=== PATIENT | female | born 1955 | race Caucasian/White ===

== ENCOUNTER 2021-02-09 14:07 | Inpatient (IN) | payer BC, SELFPAY ==
--- NOTE | ~2021-02-09 | XR_ITS ---
EXAMINATION: XR RIBS, LEFT CLINICAL INFORMATION: Pain. COMPARISON: None TECHNIQUE: 3 views of the left ribs were obtained. Chest one view FINDINGS: CHEST: Lungs are well-expanded and clear of acute process. There is minimal bilateral apical pleural thickening. No consolidation, pneumothorax, or pleural effusion. The cardiomediastinal silhouette and pulmonary vasculature are normal. Left RIBS: Osseous structures are unremarkable. Ribs are intact. There is no visible fracture or bony abnormality. The soft tissues are normal. XR/XR ribs LT min 3V w CXR1V IMPRESSION: Unremarkable chest exam. Unremarkable left rib exam. No visible fracture seen.
--- NOTE | ~2021-02-09 | CT_ITS ---
EXAMINATION: CT HEAD WITHOUT CONTRAST CLINICAL INFORMATION: Head injury. Rule out bleed. COMPARISON: None TECHNIQUE: Contiguous axial imaging was performed from the skull base to vertex without intravenous administration of contrast. This CT examination was performed using dose optimization techniques as appropriate, variously including the following: *Automated exposure control *Adjustment of mA and/or kV according to patient size (this includes techniques or standardized protocols for targeted exams where dose is matched to indication/reason for exam; i.e. extremities or head) *Use of iterative reconstruction technique DLP: 621 mGy-cm FINDINGS: There is no evidence of acute intracranial hemorrhage or territorial infarction. No abnormal mass effect or midline shift is seen. Ng to white matter differentiation is well preserved. No extra-axial fluid collections are identified. The ventricles are normal in size. There is no abnormal attenuation within the brain parenchyma. The osseous structures and soft tissues are normal. The mastoid air cells and visualized portions of the paranasal sinuses are well aerated. There is a 3 mm radiopaque density overlying the superficial soft tissues lateral to the left orbit questionable for foreign body versus calcification. CT/CT head/brain wo con IMPRESSION: No acute findings.
[2021-02-09 14:18] VITALS: BP 144/80; BP 151/91; PULSE 102; PULSE 93; RESP 15; O2SAT 98; O2SAT 99; BMI 27.8
--- NOTE | 2021-02-09 15:10 | ED_ITS ---
HPI - Fall General Chief Complaint: Fall Stated Complaint: FALL Time Seen by Provider: 02/09/21 14:19 History of Present Illness HPI Narrative: Patient complains of chest pain and a laceration to her face and left rib pain after a fall, she tripped and fell when getting out of her car, sh sanjana remembers everything she was never dizzy or feeling faint there was no syncope, no loss of consciousness, and she fell hitting the left side of her face and her left ribs, no neck pain no numbness or weakness The chest pain began after the fall when she developed a pressure-like feeling in her chest which was present on her arrival in the ER, there is no pain with a deep breath or with movement, no shortness of breath no diaphoresis no palpitations, the pain does radiate towards her back Related Data Home Medications Medication Instructions Recorded Confirmed gabapentin 600 mg PO BEDTIME 02/09/21 02/09/21 nortriptyline 25 mg PO BEDTIME 02/09/21 02/09/21 omeprazole [Prilosec] 40 mg PO DAILY 02/09/21 02/09/21 Allergies Allergy/AdvReac Type Severity Reaction Status Date / Time Penicillins [PCN] Allergy Mild Itching Verified 02/09/21 15:20 azithromycin Allergy Itching Verified 02/09/21 15:20 mold Allergy Itching Verified 02/09/21 15:20 codeine AdvReac Constipatio Verified 02/09/21 15:20 n Review of Systems Review of Systems: Positive for chest pain, left rib pain and a laceration on the face Negatives are no fever no chills no dizziness no weakness no fainting no feeling faint no confusion no headache no neck pain no numbness weakness or tingling, no shortness of breath no palpitations, no exertional symptoms no diaphoresis, no abdominal pain no nausea no vomiting no leg swelling no rash no numbness or weakness PMFSH Past Medical History [facility] Narrative: Patient is being evaluated by her primary doctor for possible diabetes, no history of heart disease no history of high cholesterol no history of high blood pressure Source: nursing notes reviewed Medical History (Updated 02/09/21 @ 21:35 by FARHANA Egan) Chronic headache Chronically dry eyes GERD (gastroesophageal reflux disease) Osteopenia Social History Social History Alcohol intake: current Alcohol intake frequency: holidays/special occasions only Smoking Status: Never smoker Use of substances other than those prescribed or required for medical reasons: No Advance Directives: No Advance Directives Information Provided: Yes Physical Exam Vital Signs: Vital Signs: Last Vital Signs Pulse 121 H 02/09/21 20:00 Resp 18 02/09/21 20:00 BP 121/80 02/09/21 20:00 Pulse Ox 100 02/09/21 20:00 Body Mass Index 27.8 General appearance is no acute distress, comfortable relaxed and cooperative There is a 2 cm laceration over the left eyebrow, there is no scalp hematoma there is no gordon sign no raccoon eyes no scalp defect, pupils are equal round reactive to light, extraocular motions are intact The neck is supple and nontender There is some tenderness to the left lower rib, but no tenderness to the chest wall, no pain with deep breath no ecchymosis to the chest wall Breath sounds are clear to auscultation bilateral with full symmetrical equal sounds The heart rate and rhythm regular no murmurs The abdomen is soft nontender Extremities no edema The extremities are full range of motion x4 without swelling or deformities Neuro cranial nerves 2-12 intact as tested, verbal interaction and conversation and understanding are normal, motor is 5/5 x4, sensation intact and symmetrical Course Course Course Narrative: EKG was normal sinus rhythm, ventricular rate on 1st EKG was 75 with no acute ischemic change, no acute ST or T-wave changes, [place] interval normal QRS duration normal QTC normal Second EKG was sinus tachycardia at a rate of [address] or T-wave changes [place] was normal QRS was normal QT normal and no significant interval change in the 2 EKGs Third EKG done 3 hours later showed sinus tachycardia with a rate of 111 [place] normal QRS normal QTC normal no acute ST or T-wave changes no acute ischemic changes no significant interval ischemic change First troponin was elevated at 156, repeat was 955 Fleecer was contacted and advised admit patient to intermediate care for monitoring and started a heparin drip and flight test engineer will evaluate patient for ischemia in the coming day Head CT was normal Left rib and chest x-ray did not reveal any acute abnormality or evidence of trauma No other significant lab abnormality The patient developed some anxiety over her visit and was given some Atarax but otherwise her chest pain resolved after an inch of nitropaste and she was comfortable and relaxed chatting with her daughter in her room Procedure note the 2 cm laceration over left eyebrow was cleansed and irrigated with normal saline, anesthesia was 6 cc of 1% lidocaine, wound was examined for foreign body, no foreign body Closure was 7 x 5.0 sutures, bleeding was controlled Hospitalist was contacted and patient was admitted to intermediate care [facility] Lab Data Attestation: I reviewed the patient's lab results. Result diagrams: 02/09/21 15:37 02/09/21 15:37 Labs: Lab Results 02/09/21 02/09/21 02/09/21 Range/Units 15:37 15:37 15:37 WBC 7.2 (4.8-10.8) X10*3/uL RBC 6.52 H (4.20-5.50) X10*6/uL Hgb 11.1 L (12.0-16.0) g/dl Hct 37.4 (37-47) % MCV 57.4 L (80-98) fL MCH 17.0 L (27.0-33.0) pg MCHC 29.7 L (31.0-35.0) g/dl RDW 17.7 H (11.0-16.0) % Plt Count 198 (160-400) X10*3/uL MPV Not Reportable Immature Gran % (Auto) 0.4 (0.0-0.4) % Neut % (Auto) 78.0 H (45-73) % Lymph % (Auto) 15.6 L (20-40) % [place] % (Auto) 4.6 (2-11) % Eos % (Auto) 1.0 (0-4) % Baso % (Auto) 0.4 (0-2) % Lymph # (Auto) 1.1 L (1.2-4.9) X10*3/uL [place] # (Auto) 0.3 (0.1-1.2) X10*3/uL Eos # (Auto) 0.1 (0.0-0.4) X10*3/uL Baso # (Auto) 0.0 (0.0-0.2) X10*3/uL Abs Immat Gran (auto) 0.03 (0.00-0.03) X10*3/uL Absolute Neuts (auto) 5.6 (2.0-8.3) X10*3/uL Absolute Nucleated RBC 0.000 (0.0-0.012) X10*3/uL Nucleated RBC % (auto) 0.0 (0.0-0.2) /100WBC Smear Tech's Comments VERIFIED Sodium 135 (135-145) mmol/L Potassium 3.5 (3.3-5.1) mmol/L Chloride 96 (96-108) mmol/L Carbon Dioxide 27 (22-29) mmol/L Anion Gap 16 (12-20) BUN 12 (9-16) mg/dL Creatinine 0.73 (0.5-1.4) mg/dL Estim Creat Clear Calc 68.2 Estimated GFR > 60 Random Glucose 242 H (60-115) mg/dL Calcium 9.3 (8.4-10.2) mg/dL Troponin I High Sens 156.3 H (<3.5-17.0) ng/L COVID-19 (CYNDIE) (Negative) COVID-19 Clin Com 02/09/21 02/09/21 Range/Units 18:36 20:25 WBC (4.8-10.8) X10*3/uL RBC (4.20-5.50) X10*6/uL Hgb (12.0-16.0) g/dl Hct (37-47) % MCV (80-98) fL MCH (27.0-33.0) pg MCHC (31.0-35.0) g/dl RDW (11.0-16.0) % Plt Count (160-400) X10*3/uL MPV Immature Gran % (Auto) (0.0-0.4) % Neut % (Auto) (45-73) % Lymph % (Auto) (20-40) % [place] % (Auto) (2-11) % Eos % (Auto) (0-4) % Baso % (Auto) (0-2) % Lymph # (Auto) (1.2-4.9) X10*3/uL [place] # (Auto) (0.1-1.2) X10*3/uL Eos # (Auto) (0.0-0.4) X10*3/uL Baso # (Auto) (0.0-0.2) X10*3/uL Abs Immat Gran (auto) (0.00-0.03) X10*3/uL Absolute Neuts (auto) (2.0-8.3) X10*3/uL Absolute Nucleated RBC (0.0-0.012) X10*3/uL Nucleated RBC % (auto) (0.0-0.2) /100WBC Smear Tech's Comments Sodium (135-145) mmol/L Potassium (3.3-5.1) mmol/L Chloride (96-108) mmol/L Carbon Dioxide (22-29) mmol/L Anion Gap (12-20) BUN (9-16) mg/dL Creatinine (0.5-1.4) mg/dL Estim Creat Clear Calc Estimated GFR Random Glucose (60-115) mg/dL Calcium (8.4-10.2) mg/dL Troponin I High Sens 955.8 H D (<3.5-17.0) ng/L COVID-19 (CYNDIE) Negative (Negative) COVID-19 Clin Com See Note Discharge Plan Discharge Clinical Impression: Acute non-ST elevation myocardial infarction (NSTEMI) Patient Disposition: Admitted As Inpatient
--- NOTE | 2021-02-09 15:23 | ECG_ITS ---
Test Reason : REPEAT Blood Pressure : / mmHG Vent. Rate : 098 BPM Atrial Rate : 098 BPM P-R Int : 162 ms QRS Dur : 080 ms QT Int : 354 ms P-R-T Axes : 023 018 026 degrees QTc Int : 451 ms Normal sinus rhythm Normal ECG No previous ECGs available Referred By: Tej Salomon Electronically Signed By:Doug Gold
[2021-02-09] MEDS: Lidocaine HCl 1 % MPF 5 ML VIAL SUBCUT ×2 (15:32)
[2021-02-09 15:56] LABS: Basophils Percent Auto 0.4 % (0-2); Hemoglobin 11.1 g/dl (12.0-16.0); MANUAL DIFF FLAG SCAN; SCAN SMEAR FLAG 1
[2021-02-09 15:58] LABS: Eosinophils Absolute Auto 0.1 X10*3/uL (0.0-0.4); Hematocrit 37.4 % (37-47); Imm Gran Abs Auto 0.03 X10*3/uL (0.00-0.03); Imm Gran Pct Auto 0.4 % (0.0-0.4); Lymphocytes Absolute Auto 1.1 X10*3/uL (1.2-4.9); Lymphocytes Percent Auto 15.6 % (20-40); Mean Corpuscular HGB Conc 29.7 g/dl (31.0-35.0); Monocytes Absolute Auto 0.3 X10*3/uL (0.1-1.2); Monocytes Percent Auto 4.6 % (2-11); Neutrophils Absolute Auto 5.6 X10*3/uL (2.0-8.3); Platelet Count 198 X10*3/uL (160-400); Red Blood Count 6.52 X10*6/uL (4.20-5.50); Red Cell Distribution Width 17.7 % (11.0-16.0); White Blood Count 7.2 X10*3/uL (4.8-10.8)
[2021-02-09 16:00] VITALS: PULSE 108; RESP 18; O2SAT 100
[2021-02-09 16:01] LABS: Anion Gap 16 (12-20); Blood Urea Nitrogen 12 mg/dL (9-16); Calcium 9.3 mg/dL (8.4-10.2); Carbon Dioxide 27 mmol/L (22-29); Chloride 96 mmol/L (96-108); Creatinine Clr Calc Pharmacy 68.2; Estimated Glomerular Filt Rate > 60; Glucose Random 242 mg/dL (60-115); Potassium 3.5 mmol/L (3.3-5.1); Sodium 135 mmol/L (135-145)
[2021-02-09 16:08] LABS: Mean Corpuscular Volume 57.4 fL (80-98)
[2021-02-09 16:09] LABS: PLT ABN DIST 1
[2021-02-09 16:11] LABS: SLIDE REVIEW VERIFIED
[2021-02-09 16:12] LABS: Troponin-I High Sensitivity 156.3 ng/L (<3.5-17.0)
--- NOTE | 2021-02-09 16:26 | ECG_ITS ---
Test Reason : FALL Blood Pressure : / mmHG Vent. Rate : 094 BPM Atrial Rate : 094 BPM P-R Int : 166 ms QRS Dur : 080 ms QT Int : 364 ms P-R-T Axes : 027 011 019 degrees QTc Int : 455 ms Normal sinus rhythm Normal ECG No previous ECGs available Referred By: Tej Salomon Electronically Signed By:Doug Gold
[2021-02-09] MEDS: Aspirin 325 MG TABLET PO (16:56)
[2021-02-09 16:57] VITALS: BP 147/92; PULSE 110
[2021-02-09] MEDS: Nitroglycerin 2 % Oint 1 GM Packet 1 INCH TRANSDERMA (16:57)
[2021-02-09 19:29] LABS: Troponin-I High Sensitivity 955.8 ng/L (<3.5-17.0)
[2021-02-09 20:00] VITALS: BP 121/80; PULSE 121; RESP 18; O2SAT 100
[2021-02-09] MEDS: Heparin Sodium,Porcine 5,000 UNIT/ML VIAL 4000 UNIT IVPUSH (20:31)
[2021-02-09] MEDS: Heparin Sodium,Porcine/1/2NS 25,000 UNIT/250 ML IV.SOLN 6.7 UNIT IVCONT (20:33)
[2021-02-09] MEDS: hydrOXYzine HCL 25 MG TABLET PO (20:37)
[2021-02-09 20:41] LABS: Prothrombin Time 12.2 SEC (10.8-13.0)
[2021-02-09 20:48] LABS: COVID-19 Test Negative (Negative)
--- NOTE | 2021-02-09 23:09 | P.HPHOSP_ITS ---
History of Present Illness Date of Service: 02/09/21 Chief Complaint: chest pain 65-year-old female with past medical history of anxiety, chronic headache, GERD, osteopenia, who presents to the hospital after a fall in experiencing chest pain. Patient reports that she was walking, tripped in a pothole and fell , hit her head, and had laceration of her left eyebrow. She immediately also developed left under the breast pain that eventually became pain across her chest, as well as pain under her right shoulder. The pain was dull achy, pain, not associated with shortness of breath, not associated with nausea or vomiting, she has no abdominal pain. She denies any palpitations. She reports that she is feeling palpitations now because she is nervous and anxious. She denies having any previous similar episodes. Her pain across her chest has not resolved but has pain under the right shoulder blade in the back. She otherwise denies any headache, change in vision, no diarrhea constipation, no urinary symptoms and no lower extremity edema. On arrival to the ED hemodynamically stable except for a heart rate of 93, blood pressure 151/91. Patient's heart rate also fluctuated between 90 to 120s sinus. Labs are significant for WBC count of 7.2, hemoglobin of 11.1, hematocrit 37.4, labs also significant for an initial troponin 156, then increase to 955.8, Patient's EKG shows normal sinus rhythm with no ST T wave changes Patient was started on heparin GGT and will be admitted for further management. Past medical history as below lung confirmed with patient Review of Systems Review of Systems: Yes all other systems are reviewed and are negative [facility] Medical History (Updated 02/10/21 @ 06:48 by Chantale Vang MD) Chronic headache Chronically dry eyes GERD (gastroesophageal reflux disease) Osteopenia Pertinent family history: Both parents healthy Surgical History (Updated 02/10/21 @ 06:47 by Chantale Vang MD) History of delivery Social History Alcohol intake: current Alcohol intake frequency: holidays/special occasions only Smoking Status: Never smoker Use of substances other than those prescribed or required for medical reasons: No Advance Directives: No Advance Directives Information Provided: Yes Meds Allergies Allergy/AdvReac Type Severity Reaction Status Date / Time Penicillins [PCN] Allergy Mild Itching Verified 02/09/21 15:20 azithromycin Allergy Itching Verified 02/09/21 15:20 mold Allergy Itching Verified 02/09/21 15:20 codeine AdvReac Constipatio Verified 02/09/21 15:20 n Active Medications: Current Medications Generic Name Dose Route Start Last Admin Trade Name Freq PRN Reason Stop Dose Admin Acetaminophen 650 mg 02/09/21 22:28 Acetaminophen 325 Mg Tablet PO Q6H PRN Pain, Mild (Pain Scale 1-3) Aspirin 81 mg 02/10/21 09:00 Aspirin Enteric Coated 81 Mg Tablet. PO DAILY [facility] Atorvastatin Calcium 40 mg 02/10/21 21:00 Atorvastatin Calcium 40 Mg Tablet PO BEDTIME [facility] Docusate Sodium 100 mg 02/09/21 22:28 Docusate Sodium 100 Mg Capsule PO DAILY PRN Constipation Gabapentin 600 mg 02/09/21 22:28 Gabapentin 600 Mg Tablet PO BEDTIME [facility] Heparin Sodium/Sodium Chloride 25,000 unit in 250 mls @ 0 mls/hr 02/09/21 20:30 02/09/21 20:33 IVCONT 10 units/kg/hr .Q0M [facility] 6.7 mls/hr Administration Protocol Per Protocol Metoprolol Tartrate 6.25 mg 02/10/21 09:00 Metoprolol Tartrate 12.5 Mg Halftab PO BID [facility] Protocol Nortriptyline HCl 25 mg 02/09/21 22:28 Nortriptyline Hcl 25 Mg Capsule PO BEDTIME [facility] Omeprazole 40 mg 02/10/21 06:30 Omeprazole 40 Mg Capsule. PO DAILY@0630 [facility] Ondansetron HCl 4 mg 02/09/21 22:28 Ondansetron Hcl 4 Mg/2 Ml Vial IVPUSH Q8H PRN Nausea and Vomiting Sodium Chloride 3 ml 02/10/21 00:00 0.9 % Sodium Chloride Flush 3 Ml Syringe IVFLUSH QSHIFT [facility] Home Medications Medication Instructions Recorded Confirmed Last Taken Type gabapentin 600 mg PO BEDTIME 02/09/21 02/09/21 1 Day Ago History ~02/08/21 nortriptyline 25 mg PO BEDTIME 02/09/21 02/09/21 1 Day Ago History ~02/08/21 omeprazole [Prilosec] 40 mg PO DAILY 02/09/21 02/09/21 1 Day Ago History ~02/08/21 Physical Exam Vital Signs and Narrative: Vital Signs: Last Vital Signs Pulse 121 H 02/09/21 20:00 Resp 18 02/09/21 20:00 BP 121/80 02/09/21 20:00 Pulse Ox 100 02/09/21 20:00 Body Mass Index 27.8 Const: General: cooperative and no acute distress Orientation/consciousness: patient oriented x3 Eyes: Other: Laceration on the left eyebrow, sutured General: appearance normal, both eyes and all related structures Resp: Effort & Inspection: normal respiratory effort and able to speak in complete sentences Cardio: Rate: regular rate Rhythm: regular rhythm GI: Palpation (GI): Soft to palpation Auscultation: normal bowel sounds Skin: General skin exam: no rashes or lesions noted Neuro: General: patient oriented x3 Cognition (Neuro): normal cognition Extrem: General: Yes normal to inspection and Yes no pedal edema Results Labs CBC and Chem 7: 02/09/21 15:37 02/09/21 15:37 Labs: Laboratory Results - last 24 hr 02/09/21 02/09/21 02/09/21 15:37 15:37 15:37 MCV 57.4 L MCH 17.0 L MCHC 29.7 L RDW 17.7 H Plt Count 198 MPV Not Reportable Immature Gran % (Auto) 0.4 Neut % (Auto) 78.0 H Lymph % (Auto) 15.6 L [place] % (Auto) 4.6 Eos % (Auto) 1.0 Baso % (Auto) 0.4 Lymph # (Auto) 1.1 L [place] # (Auto) 0.3 Eos # (Auto) 0.1 Baso # (Auto) 0.0 Abs Immat Gran (auto) 0.03 Absolute Neuts (auto) 5.6 Absolute Nucleated RBC 0.000 Nucleated RBC % (auto) 0.0 Smear Tech's Comments VERIFIED PT INR PTT (Heparin Protocol) Anion Gap 16 Estim Creat Clear Calc 68.2 Estimated GFR > 60 Random Glucose 242 H Calcium 9.3 Troponin I High Sens 156.3 H COVID-19 (CYNDIE) COVID-19 Clin Com 02/09/21 02/09/21 02/09/21 18:36 20:25 20:25 MCV MCH MCHC RDW Plt Count MPV Immature Gran % (Auto) Neut % (Auto) Lymph % (Auto) [place] % (Auto) Eos % (Auto) Baso % (Auto) Lymph # (Auto) [place] # (Auto) Eos # (Auto) Baso # (Auto) Abs Immat Gran (auto) Absolute Neuts (auto) Absolute Nucleated RBC Nucleated RBC % (auto) Smear Tech's Comments PT 12.2 INR 1.0 PTT (Heparin Protocol) 30.0 L Anion Gap Estim Creat Clear Calc Estimated GFR Random Glucose Calcium Troponin I High Sens 955.8 H D COVID-19 (CYNDIE) Negative COVID-19 Clin Com See Note ECG Interpretation: Normal sinus rhythm, no ST T-wave changes suggestive of ACS Imaging Radiologist's Impressions: Impressions Ribs X-Ray 02/09/21 15:23 IMPRESSION: Unremarkable chest exam. Unremarkable left rib exam. No visible fracture seen. Head CT 02/09/21 15:24 IMPRESSION: No acute findings. Assessment and Plan (1) Acute non-ST elevation myocardial infarction (NSTEMI): Status: Acute (2) Fall: Status: Acute (3) Eyebrow laceration: Status: Acute This is a 65-year-old female with no risk factors for coronary artery disease presents to the hospital with chest pain after experiencing a mechanical fall. Found to have NSTEMI. # NSTEMI - Possibly precipitated by the fall?, as patient had a significant fall with laceration to her face - Has no risk factors but reports that she was being worked up for possible diabetes - Trop 156 -> 955 - Has chest pain across the chest Plan: - ASA, heparin ggt, start her on low dose metoprolol BID, statin - Echocardiogram - Cardiology consult # Fall - Mechanical - No evidence of rib fracture on xray # Eyebrow laceration - s/p sutures # Headaches - chronic - continue nortriptyline DVT ppx: Heparin subq
[2021-02-09] MEDS: Nortriptyline HCl 25 MG CAPSULE PO (23:53)
[2021-02-09] MEDS: Gabapentin 600 MG TABLET PO (23:53)
--- NOTE | 2021-02-10 | ECG_ITS ---
Test Reason : REPEAT Blood Pressure : / mmHG Vent. Rate : 108 BPM Atrial Rate : 108 BPM P-R Int : 152 ms QRS Dur : 076 ms QT Int : 372 ms P-R-T Axes : 027 009 140 degrees QTc Int : 498 ms Sinus tachycardia T wave abnormality, consider lateral ischemia Abnormal ECG When compared with ECG of 09-FEB-2021 17:13, T wave inversion now evident in Anterolateral leads Referred By: Basilio Bui Electronically Signed By:Doug Gold
[2021-02-10] MEDS: 0.9 % Sodium Chloride Flush 3 ML SYRINGE IVFLUSH (00:03)
[2021-02-10 01:25] VITALS: BP 120/58; PULSE 99; RESP 18; O2SAT 100
--- NOTE | 2021-02-10 02:10 | PC.NURSE ---
Phlebotomy contacted for protocol draw for heparin drip.
[2021-02-10 02:30] LABS: Troponin-I High Sensitivity 1374.1 ng/L (<3.5-17.0)
[2021-02-10 07:11] LABS: Estimated Average Glucose 286 mg/dL; Hemoglobin A1c % 11.6 %
[2021-02-10] MEDS: Omeprazole 40 MG CAPSULE.DR PO (07:52)
[2021-02-10 08:21] LABS: Imm Gran Abs Auto 0.03 X10*3/uL (0.00-0.03); Imm Gran Pct Auto 0.4 % (0.0-0.4); MANUAL DIFF FLAG SCAN; SCAN SMEAR FLAG 1
[2021-02-10 08:23] LABS: Basophils Percent Auto 0.4 % (0-2); Eosinophils Absolute Auto 0.1 X10*3/uL (0.0-0.4); Eosinophils Percent Auto 0.7 % (0-4); Hematocrit 38.8 % (37-47); Hemoglobin 11.5 g/dl (12.0-16.0); Lymphocytes Absolute Auto 1.8 X10*3/uL (1.2-4.9); Lymphocytes Percent Auto 21.9 % (20-40); Mean Corpuscular HGB Conc 29.6 g/dl (31.0-35.0); Mean Corpuscular Hemoglobin 16.9 pg (27.0-33.0); Monocytes Absolute Auto 0.6 X10*3/uL (0.1-1.2); Monocytes Percent Auto 7.5 % (2-11); Neutrophils Absolute Auto 5.6 X10*3/uL (2.0-8.3); Neutrophils Percent Auto 69.1 % (45-73); Platelet Count 223 X10*3/uL (160-400); Red Blood Count 6.82 X10*6/uL (4.20-5.50); Red Cell Distribution Width 18.4 % (11.0-16.0); White Blood Count 8.1 X10*3/uL (4.8-10.8)
[2021-02-10 08:39] LABS: INTERNATIONAL NORM RATIO 1.1 (0.9-1.1); Prothrombin Time 12.9 SEC (10.8-13.0)
[2021-02-10 08:48] LABS: Anion Gap 16 (12-20); Blood Urea Nitrogen 9 mg/dL (9-16); Calcium 8.7 mg/dL (8.4-10.2); Carbon Dioxide 24 mmol/L (22-29); Chloride 100 mmol/L (96-108); Creatinine Clr Calc Pharmacy 74.3; Estimated Glomerular Filt Rate > 60; Glucose Random 249 mg/dL (60-115); Potassium 3.9 mmol/L (3.3-5.1); Sodium 136 mmol/L (135-145); Troponin-I High Sensitivity 1044.6 ng/L (<3.5-17.0)
[2021-02-10 08:51] LABS: Mean Corpuscular Volume 56.9 fL (80-98); PLT ABN DIST 1
--- NOTE | 2021-02-10 09:00 | CA_ITS ---
Transthoracic Echocardiogram Patient (Last, First, Middle): Mae Lee, Gender: Female Date of : 1955 Age: 65 Procedure Date: 02/10/2021 Procedure Type: Transthoracic Echocardiogram Location: ER Height: 154.94 cm Weight: 66.68 kg BSA: 1.66 m2 Heart Rate: bpm BP: 120 / 58 mmHg Jewelry Making Instructor: ASNA Amador MD: Chantale Vang MD Symptoms: NSTEMI Study Quality: Fair/contrast Conclusions: - The left ventricular systolic function is moderately decreased. The visually estimated ejection fraction is between 30-35%. - The apical anterior, apical inferior, mid anterior, mid inferior, apical lateral, apical septum, mid anterolateral, mid inferoseptal, mid anteroseptal, and mid inferolateral segments are akinetic. - Findings are likely due to Takotsubo cardiomyopathy. We shall correlate with cardiac cath tomorrow. Findings Procedure Information Contrast agent, definity, is being given per protocol without apparent complications. Left Ventricle Normal left ventricular cavity size. There is mildly increased left ventricular wall thickness. The left ventricular systolic function is moderately decreased. The visually estimated ejection fraction is between 30 35%. There is evidence of regional wall motion abnormalities. Diastolic function is indeterminate on the basis of available data. Wall Motion Rest Echo Findings The apical anterior, apical inferior, mid anterior, mid inferior, apical lateral, apical septum, mid anterolateral, mid inferoseptal, mid anteroseptal, and mid inferolateral segments are akinetic. Right Ventricle Normal right ventricular cavity size and systolic function. Atria Both atria are normal in size. Aortic Valve There is a normal trileaflet aortic valve. There is mild thickening of the aortic valve. There is no aortic valve stenosis. There is no aortic valve regurgitation. Mitral Valve Normal mitral valve structure and function. There is no mitral valve regurgitation. There is no mitral valve stenosis. Pulmonic Valve Normal pulmonic valve structure and function. Tricuspid Valve Normal tricuspid valve structure and function. There is no tricuspid valve regurgitation. Tricuspid regurgitation envelope is inadequate for calculation of right ventricular systolic pressure. Normal right atrial pressure. Great Vessels All visible segments of the aorta are normal in size. The visualized portions of the pulmonary artery and branches are normal. Venous The inferior vena cava is normal in size and collapses greater than 50% with inspiration. Pericardium/Pleural There is no evidence of pericardial effusion. Prior Study Comparison No prior study available for comparison. Measurements 2D Linear Measurements IVSd: 1.06 0.6-0.9/0.6-1.0 cm LVIDd: 3.61 3.9-5.3/4.2-5.9 cm LVIDd Index: 2.17 2.4-3.2/2.2-3.1 cm/m2 LVIDs: 2.66 2.0-3.6 cm LVPWd: 1.06 0.7-1.1 cm Ao Root: 3.10 2.1-3.5 cm LA Diam: 3.10 2.7-3.8/3.0-4.0 cm LAIDs Index: 1.87 1.5-2.3 cm/m2 LV Mass: 146.73 67-162/88-224 g LV Mass Index: 88.39 43-95/49-115 g/m2 LVOT Diam: 2.00 3.0+(-)1.3 cm Mitral Valve E'Medial: 8.81 Aortic Valve AoV Pk Saw: 1.03 AoV Mn Saw: 0.75 AoV VTI: 0.17 AoV Pk Grad: 4.00 Aov Mn Grad: 3.00 CHRISTINA Cont.VTI: 3.00 LVOT LVOT Pk Saw: 1.02 LVOT Mn Saw: 0.62 LVOT VTI: 0.17 LVOT Pk Grad: 4.00 LVOT Mn Grad: 2.00 LVOT Diam: 2.00 LVOT Area: 3.14 Diastolic Function E'Medial: 8.81 Tricuspid Valve RA Press: 3.00 Great Vessels Aorta Ao Root-2D: 3.10 2.0-3.7 cm Ao Asc: 2.70 2.1-3.4 cm Ao Arch: 3.20 Updated in Other Vendor System with Status of Final Doug Gold MD electronically signed on 02/10/2021 3:43:43 PM with status of Final
[2021-02-10 09:01] LABS: SLIDE REVIEW VERIFIED
[2021-02-10 09:10] LABS: Cholesterol 235 mg/dL; HDL Cholesterol 59 mg/dL; LDL Cholesterol Calculated 143 mg/dl; Triglycerides 169 mg/dL
--- NOTE | 2021-02-10 09:17 | MHC.CM.ED ---
Met with patient in regards to discharge planning. Patient lives in [facility]. Her daughter goes to [facility]. She came up to visit daughter, tripped on a pothole getting out of the car and fell. Currently has a left black eye and sutures over her left eyebrow. Patient was found to have positive NSTEMI. Patient lives alone, ambulates independently and had no services prior to coming to the hospital. VNA services are not anticipated to be needed because patient is not homebound. PCP verified as Dr Desire Olea on the [address] in [facility]. Patient is in the process of creating a will and living will with her admiralty lawyer. She is not interested in completing one at this time. Patient's daughter will transport her home when medically stable. Continue to monitor for d/c needs.
[2021-02-10 09:38] LABS: PTT Heparin Drip 56.7 SEC (53-77.9)
[2021-02-10] MEDS: Metoprolol Tartrate 12.5 MG HALFTAB 6.25 MG PO (09:40)
[2021-02-10] MEDS: Aspirin Enteric Coated 81 MG TABLET.DR PO (09:41)
[2021-02-10] MEDS: Acetaminophen 325 MG TABLET 650 MG PO (09:46)
--- NOTE | 2021-02-10 10:33 | PM.CNCAR ---
History of Present Illness History of Present Illness Date of Service: 02/10/21 Requesting physician: Basilio Bui Chief complaint: Nstemi Narrative: 65-year-old female with mechanical fall. She said she was walking with her daughter when she tripped and fell hitting her face. She had bleeding from the left bahai and bruising in the periorbital area with swelling. While in the ambulance she had chest pain across her chest and the back. This lasted for approximately 1-2 hours. She has had gradually the pain went away. She had some upper back discomfort for which she takes Tylenol. Her cardiac enzymes were positive and EKG showing lateral and anterior T-wave inversions. She is currently pain free. She said she previously never had any chest discomfort. She has no significant medical issues except gastroesophageal reflux disease. No bleeding issues in the past. She has been started on heparin drip. Review of Systems Review of Systems: No symptoms right now Yes all other systems are reviewed and are negative PMFSH Past Medical History Medical History (Updated 02/10/21 @ 06:48 by Chantale Vang MD) Chronic headache Chronically dry eyes GERD (gastroesophageal reflux disease) Osteopenia Surgical History Surgical History (Updated 02/10/21 @ 06:47 by Chantale Vang MD) History of delivery Social History Social History Alcohol intake: current Alcohol intake frequency: holidays/special occasions only Smoking Status: Never smoker Use of substances other than those prescribed or required for medical reasons: No Advance Directives: No Advance Directives Information Provided: Yes service: No Current occupational status: unemployed Meds Allergies Allergy/AdvReac Type Severity Reaction Status Date / Time Penicillins [PCN] Allergy Mild Itching Verified 02/09/21 15:20 azithromycin Allergy Itching Verified 02/09/21 15:20 mold Allergy Itching Verified 02/09/21 15:20 codeine AdvReac Constipatio Verified 02/09/21 15:20 n Active Medications: Current Medications Generic Name Dose Route Start Last Admin Trade Name Freq PRN Reason Stop Dose Admin Acetaminophen 650 mg 02/09/21 22:28 02/10/21 09:46 Acetaminophen 325 Mg Tablet PO 650 mg Q6H PRN Administration Pain, Mild (Pain Scale 1-3) Aspirin 81 mg 02/10/21 09:00 02/10/21 09:41 Aspirin Enteric Coated 81 Mg Tablet. PO 81 mg DAILY DEMETRA Administration Atorvastatin Calcium 40 mg 02/10/21 21:00 Atorvastatin Calcium 40 Mg Tablet PO BEDTIME DEMETRA Docusate Sodium 100 mg 02/09/21 22:28 Docusate Sodium 100 Mg Capsule PO DAILY PRN Constipation Gabapentin 600 mg 02/09/21 22:28 02/09/21 23:53 Gabapentin 600 Mg Tablet PO 600 mg BEDTIME DEMETRA Administration Heparin Sodium/Sodium Chloride 25,000 unit in 250 mls @ 0 mls/hr 02/09/21 20:30 02/09/21 20:33 IVCONT 10 units/kg/hr .Q0M DEMETRA 6.7 mls/hr Administration Protocol Per Protocol Metoprolol Tartrate 6.25 mg 02/10/21 09:00 02/10/21 09:40 Metoprolol Tartrate 12.5 Mg Halftab PO 6.25 mg BID DEMETRA Administration Protocol Nortriptyline HCl 25 mg 02/09/21 22:28 02/09/21 23:53 Nortriptyline Hcl 25 Mg Capsule PO 25 mg BEDTIME [facility] Administration Omeprazole 40 mg 02/10/21 06:30 02/10/21 07:52 Omeprazole 40 Mg Capsule. PO 40 mg DAILY@0630 [facility] Administration Ondansetron HCl 4 mg 02/09/21 22:28 Ondansetron Hcl 4 Mg/2 Ml Vial IVPUSH Q8H PRN Nausea and Vomiting Sodium Chloride 3 ml 02/10/21 00:00 02/10/21 08:13 0.9 % Sodium Chloride Flush 3 Ml Syringe IVFLUSH Not Given QSHIFT [facility] Home Medications Medication Instructions Recorded Confirmed Last Taken Type gabapentin 600 mg PO BEDTIME 02/09/21 02/09/21 1 Day Ago History ~02/08/21 nortriptyline 25 mg PO BEDTIME 02/09/21 02/09/21 1 Day Ago History ~02/08/21 omeprazole 40 mg PO DAILY 02/09/21 02/09/21 1 Day Ago History ~02/08/21 Physical Exam Vital Signs: Vital Signs: Last Vital Signs Pulse 99 02/10/21 01:25 Resp 18 02/10/21 01:25 BP 120/58 L 02/10/21 01:25 Pulse Ox 100 02/10/21 01:25 Body Mass Index 27.8 GENERAL APPEARANCE: in no acute distress, well developed, well nourished. HEENT: unremarkable. HEAD: Left bahai wound, left periorbital hematoma and edema. NECK/THYROID: no carotid bruit, no jugular venous distention. SKIN: no suspicious lesions, warm and dry. HEART: no murmurs, regular rate and rhythm, S1, S2 normal. LUNGS: clear to auscultation bilaterally. ABDOMEN: normal, bowel sounds present, soft, nontender, nondistended. EXTREMITIES: no clubbing, cyanosis, or edema. PERIPHERAL PULSES: equal. NEUROLOGIC: nonfocal, alert and oriented. PSYCH: mood/affect full range. Results Labs and Meds Result diagrams: 02/10/21 08:12 02/10/21 08:12 Lab results: Laboratory Results - last 24 hr 02/09/21 02/09/21 02/09/21 15:37 15:37 15:37 WBC 7.2 RBC 6.52 H Hgb 11.1 L Hct 37.4 MCV 57.4 L MCH 17.0 L MCHC 29.7 L RDW 17.7 H Plt Count 198 MPV Not Reportable Immature Gran % (Auto) 0.4 Neut % (Auto) 78.0 H Lymph % (Auto) 15.6 L [place] % (Auto) 4.6 Eos % (Auto) 1.0 Baso % (Auto) 0.4 Lymph # (Auto) 1.1 L [place] # (Auto) 0.3 Eos # (Auto) 0.1 Baso # (Auto) 0.0 Abs Immat Gran (auto) 0.03 Absolute Neuts (auto) 5.6 Absolute Nucleated RBC 0.000 Nucleated RBC % (auto) 0.0 Smear Tech's Comments VERIFIED PT INR PTT (Heparin Protocol) Sodium 135 Potassium 3.5 Chloride 96 Carbon Dioxide 27 Anion Gap 16 BUN 12 Creatinine 0.73 Estim Creat Clear Calc 68.2 Estimated GFR > 60 Random Glucose 242 H Estimat Average Glucose Hemoglobin A1c % Calcium 9.3 Troponin I High Sens 156.3 H Triglycerides Cholesterol LDL Cholesterol, Calc HDL Cholesterol COVID-19 (CYNDIE) COVID-19 Clin Com 02/09/21 02/09/21 02/09/21 15:37 18:36 20:25 WBC RBC Hgb Hct MCV MCH MCHC RDW Plt Count MPV Immature Gran % (Auto) Neut % (Auto) Lymph % (Auto) [place] % (Auto) Eos % (Auto) Baso % (Auto) Lymph # (Auto) [place] # (Auto) Eos # (Auto) Baso # (Auto) Abs Immat Gran (auto) Absolute Neuts (auto) Absolute Nucleated RBC Nucleated RBC % (auto) Smear Tech's Comments PT INR PTT (Heparin Protocol) Sodium Potassium Chloride Carbon Dioxide Anion Gap BUN Creatinine Estim Creat Clear Calc Estimated GFR Random Glucose Estimat Average Glucose 286 Hemoglobin A1c % 11.6 Calcium Troponin I High Sens 955.8 H D Triglycerides Cholesterol LDL Cholesterol, Calc HDL Cholesterol COVID-19 (CYNDIE) Negative COVID-SeeToo Clin Com See Note 02/09/21 02/10/21 02/10/21 20:25 01:45 02:18 WBC RBC Hgb Hct MCV MCH MCHC RDW Plt Count MPV Immature Gran % (Auto) Neut % (Auto) Lymph % (Auto) [place] % (Auto) Eos % (Auto) Baso % (Auto) Lymph # (Auto) [place] # (Auto) Eos # (Auto) Baso # (Auto) Abs Immat Gran (auto) Absolute Neuts (auto) Absolute Nucleated RBC Nucleated RBC % (auto) Smear Tech's Comments PT 12.2 INR 1.0 PTT (Heparin Protocol) 30.0 L 77.0 D Sodium Potassium Chloride Carbon Dioxide Anion Gap BUN Creatinine Estim Creat Clear Calc Estimated GFR Random Glucose Estimat Average Glucose Hemoglobin A1c % Calcium Troponin I High Sens 1374.1 H Triglycerides Cholesterol LDL Cholesterol, Calc HDL Cholesterol COVID-19 (CYNDIE) COVID-[employer] 02/10/21 02/10/21 02/10/21 08:12 08:12 08:12 WBC 8.1 RBC 6.82 H Hgb 11.5 L Hct 38.8 MCV 56.9 L MCH 16.9 L MCHC 29.6 L RDW 18.4 H Plt Count 223 MPV Not Reportable Immature Gran % (Auto) 0.4 Neut % (Auto) 69.1 Lymph % (Auto) 21.9 [place] % (Auto) 7.5 Eos % (Auto) 0.7 Baso % (Auto) 0.4 Lymph # (Auto) 1.8 [place] # (Auto) 0.6 Eos # (Auto) 0.1 Baso # (Auto) 0.0 Abs Immat Gran (auto) 0.03 Absolute Neuts (auto) 5.6 Absolute Nucleated RBC 0.000 Nucleated RBC % (auto) 0.0 Smear Tech's Comments VERIFIED PT 12.9 INR 1.1 PTT (Heparin Protocol) Sodium 136 Potassium 3.9 Chloride 100 Carbon Dioxide 24 Anion Gap 16 BUN 9 Creatinine 0.67 Estim Creat Clear Calc 74.3 Estimated GFR > 60 Random Glucose 249 H Estimat Average Glucose Hemoglobin A1c % Calcium 8.7 D Troponin I High Sens Triglycerides 169 Cholesterol 235 LDL Cholesterol, Calc 143 HDL Cholesterol 59 COVID-19 (CYNDIE) COVID-19 Clin Com 02/10/21 02/10/21 08:12 09:21 WBC RBC Hgb Hct MCV MCH MCHC RDW Plt Count MPV Immature Gran % (Auto) Neut % (Auto) Lymph % (Auto) [place] % (Auto) Eos % (Auto) Baso % (Auto) Lymph # (Auto) [place] # (Auto) Eos # (Auto) Baso # (Auto) Abs Immat Gran (auto) Absolute Neuts (auto) Absolute Nucleated RBC Nucleated RBC % (auto) Smear Tech's Comments PT INR PTT (Heparin Protocol) 56.7 D Sodium Potassium Chloride Carbon Dioxide Anion Gap BUN Creatinine Estim Creat Clear Calc Estimated GFR Random Glucose Estimat Average Glucose Hemoglobin A1c % Calcium Troponin I High Sens 1044.6 H Triglycerides Cholesterol LDL Cholesterol, Calc HDL Cholesterol COVID-19 (CYNDIE) COVID-19 Clin Com Imaging Radiologist's impression: Impressions Ribs X-Ray 02/09/21 15:23 IMPRESSION: Unremarkable chest exam. Unremarkable left rib exam. No visible fracture seen. Head CT 02/09/21 15:24 IMPRESSION: No acute findings. Assessment and Plan (1) Acute non-ST elevation myocardial infarction (NSTEMI): Status: Acute (2) Fall: Status: Acute Pleasant 65-year-old female who presented with mechanical fall. The story is clearly a mechanical fall where she tripped and fell. She hit her had an and bleeding. She was very distressed by that. She was accompanied by her daughter at that time. In the ambulance she had chest discomfort. She ruled in for NSTEMI. Agree with heparin drip right now. I had a detailed discussion with her about cardiac catheterization. The differentials are true acute coronary syndrome versus takotsubo cardiomyopathy. Will check echocardiogram to assess wall motion abnormality. Would not start any beta-bina till I have assessment of her LVEF. I am transferring her for cardiac catheterization to [facility]. We will try to do this store morning unless she has more symptoms. In the meantime she should stay on heparin drip. The pros and cons of the procedure were explained to the patient in great detail. She has left periorbital hematoma and edema. She should have ice back periodically to decrease the swelling. She was noticed to be hypoglycemic by her primary care physician and was undergoing workup for diabetes. We will follow her at [facility] after the cardiac catheterization. Thank you for allowing me to participate in the care of your patient. Please feel free to contact me if you have any questions.
--- NOTE | 2021-02-10 11:32 | PC.NURSE ---
Addendum entered by Nathan Rodriguez 02/10/21 11:34: at that time, pt denies chest pain or sob. Original Note: no change following am ptthd, pt repeat troponin still elevated. dr swapnil prieto, consulting w cardiology about present status. per maintenance service technician, pt to be transferred to [facility] for hloc. pt had evolution of ekg present this am.
--- NOTE | 2021-02-10 11:38 | PM.DS ---
DS: Providers Provider Date of Service: 02/10/21 Date of admission: 02/09/21 22:03 Primary care physician: Unknown Physician Consults: 02/09/21 22:28 Consult to Cardiology Routine Consulting Provider: Magan Joshi Reason for consultation: NSTEMI Has provider been notified: No DS: Diagnosis Discharge Diagnosis (1) Acute non-ST elevation myocardial infarction (NSTEMI): Status: Acute (2) Fall: Status: Acute (3) Eyebrow laceration: Status: Acute DS: Medications Discharge Medications Home Medications: Home Medications Medication Instructions Recorded Confirmed gabapentin 600 mg PO BEDTIME 02/09/21 02/09/21 nortriptyline 25 mg PO BEDTIME 02/09/21 02/09/21 omeprazole [Prilosec] 40 mg PO DAILY 02/09/21 02/09/21 DS: Summary Hospital Course Hospital Course: History of presenting illness 65-year-old female with past medical history of anxiety, chronic headache, GERD, osteopenia, who presents to the hospital after a fall in experiencing chest pain. Patient reports that she was walking, tripped in a pothole and fell , hit her head, and had laceration of her left eyebrow. She immediately also developed left under the breast pain that eventually became pain across her chest, as well as pain under her right shoulder. The pain was dull achy, pain, not associated with shortness of breath, not associated with nausea or vomiting, she has no abdominal pain. She denies any palpitations. She reports that she is feeling palpitations now because she is nervous and anxious. She denies having any previous similar episodes. Her pain across her chest has not resolved but has pain under the right shoulder blade in the back. She otherwise denies any headache, change in vision, no diarrhea constipation, no urinary symptoms and no lower extremity edema. On arrival to the ED hemodynamically stable except for a heart rate of 93, blood pressure 151/91. Patient's heart rate also fluctuated between 90 to 120s sinus. Labs are significant for WBC count of 7.2, hemoglobin of 11.1, hematocrit 37.4, labs also significant for an initial troponin 156, then increase to 955.8, Patient's EKG shows normal sinus rhythm with no ST T wave changes Patient was started on heparin GGT and will be admitted for further management. 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 Non ST-elevation [place] Patient admitted with a diagnosis of acute coronary disease, patient treated in the emergency room with aspirin, beta blockers, statins and placed on IV heparin currently patient is chest pain-free due to rising troponin repeat EKG was obtained that showed new T-wave inversion in anterolateral leads, patient seen by boiler control room operator Dr. Gold he recommend patient to be transferred to [facility] for cardiac catheterization, to be done tomorrow morning, patient blood sugars were noted to be in 200 range, hemoglobin A1c of 11.6, with no prior history of diabetes, patient also noted to have elevated LDL 143, patient is a nonsmoker and socially drinks alcohol, patient is aware of the plan of care and agrees to be transferred to [facility] Diabetes mellitus newly diagnosed Place patient on diabetic diet and add insulin sliding scale Mechanical fall /left eye hematoma and laceration s/p suturing /ice,ct head showed a 3 mm radiopaque density overlying the superficial soft tissues lateral to the left orbit questionable for foreign body versus calcification otherwise no other acute intracranial abnormality. Time Spent with Patient Time attestation: Total time spent providing and/or coordinating discharge services: Discharge coordination time: Greater than 30 minutes Physical Exam Vital Signs: Vital Signs: Last Vital Signs Pulse 99 02/10/21 01:25 Resp 18 02/10/21 01:25 BP 120/58 L 02/10/21 01:25 Pulse Ox 100 02/10/21 01:25 Body Mass Index 27.8 General patient resting comfortably in no acute distress. Face laceration on the left eyebrow sutures in place/significant bruising and swelling left eye (left periorbital hematoma) Neck is supple no JVD. CVS regular rate rhythm, Respiratory lungs clear to auscultation, no respiratory distress, no wheeze, no rhonchi. Gastrointestinal abdomen soft, nontender, bowel sounds audible, no guarding , no rigidity. Extremities no clubbing cyanosis or edema. Neuro nonfocal. Psych appropriate affect Skin no rash DS: Data Data Completed and Pending Labs on day of discharge: Laboratory Results - last 24 hr 02/09/21 02/09/21 02/09/21 15:37 15:37 15:37 WBC 7.2 RBC 6.52 H Hgb 11.1 L Hct 37.4 MCV 57.4 L MCH 17.0 L MCHC 29.7 L RDW 17.7 H Plt Count 198 MPV Not Reportable Immature Gran % (Auto) 0.4 Neut % (Auto) 78.0 H Lymph % (Auto) 15.6 L [place] % (Auto) 4.6 Eos % (Auto) 1.0 Baso % (Auto) 0.4 Lymph # (Auto) 1.1 L [place] # (Auto) 0.3 Eos # (Auto) 0.1 Baso # (Auto) 0.0 Abs Immat Gran (auto) 0.03 Absolute Neuts (auto) 5.6 Absolute Nucleated RBC 0.000 Nucleated RBC % (auto) 0.0 Smear Tech's Comments VERIFIED Smear Path Review SEE NOTE PT INR PTT (Heparin Protocol) Sodium 135 Potassium 3.5 Chloride 96 Carbon Dioxide 27 Anion Gap 16 BUN 12 Creatinine 0.73 Estim Creat Clear Calc 68.2 Estimated GFR > 60 Random Glucose 242 H Estimat Average Glucose Hemoglobin A1c % Calcium 9.3 Troponin I High Sens 156.3 H Triglycerides Cholesterol LDL Cholesterol, Calc HDL Cholesterol COVID-19 (CYNDIE) COVID-[employer] 02/09/21 02/09/21 02/09/21 15:37 18:36 20:25 WBC RBC Hgb Hct MCV MCH MCHC RDW Plt Count MPV Immature Gran % (Auto) Neut % (Auto) Lymph % (Auto) [place] % (Auto) Eos % (Auto) Baso % (Auto) Lymph # (Auto) [place] # (Auto) Eos # (Auto) Baso # (Auto) Abs Immat Gran (auto) Absolute Neuts (auto) Absolute Nucleated RBC Nucleated RBC % (auto) Smear Tech's Comments Smear Path Review PT INR PTT (Heparin Protocol) Sodium Potassium Chloride Carbon Dioxide Anion Gap BUN Creatinine Estim Creat Clear Calc Estimated GFR Random Glucose Estimat Average Glucose 286 Hemoglobin A1c % 11.6 Calcium Troponin I High Sens 955.8 H D Triglycerides Cholesterol LDL Cholesterol, Calc HDL Cholesterol COVID-19 (CYNDIE) Negative [employer] See Note 03/02/10/21 02/10/21 20:25 01:45 02:18 WBC RBC Hgb Hct MCV MCH MCHC RDW Plt Count MPV Immature Gran % (Auto) Neut % (Auto) Lymph % (Auto) [place] % (Auto) Eos % (Auto) Baso % (Auto) Lymph # (Auto) [place] # (Auto) Eos # (Auto) Baso # (Auto) Abs Immat Gran (auto) Absolute Neuts (auto) Absolute Nucleated RBC Nucleated RBC % (auto) Smear Tech's Comments Smear Path Review PT 12.2 INR 1.0 PTT (Heparin Protocol) 30.0 L 77.0 D Sodium Potassium Chloride Carbon Dioxide Anion Gap BUN Creatinine Estim Creat Clear Calc Estimated GFR Random Glucose Estimat Average Glucose Hemoglobin A1c % Calcium Troponin I High Sens 1374.1 H Triglycerides Cholesterol LDL Cholesterol, Calc HDL Cholesterol COVID-19 (CYNDIE) COVID-19 [id number] 02/10/21 02/10/21 02/10/21 08:12 08:12 08:12 WBC 8.1 RBC 6.82 H Hgb 11.5 L Hct 38.8 MCV 56.9 L MCH 16.9 L MCHC 29.6 L RDW 18.4 H Plt Count 223 MPV Not Reportable Immature Gran % (Auto) 0.4 Neut % (Auto) 69.1 Lymph % (Auto) 21.9 [place] % (Auto) 7.5 Eos % (Auto) 0.7 Baso % (Auto) 0.4 Lymph # (Auto) 1.8 [place] # (Auto) 0.6 Eos # (Auto) 0.1 Baso # (Auto) 0.0 Abs Immat Gran (auto) 0.03 Absolute Neuts (auto) 5.6 Absolute Nucleated RBC 0.000 Nucleated RBC % (auto) 0.0 Smear Tech's Comments VERIFIED Smear Path Review PT 12.9 INR 1.1 PTT (Heparin Protocol) Sodium 136 Potassium 3.9 Chloride 100 Carbon Dioxide 24 Anion Gap 16 BUN 9 Creatinine 0.67 Estim Creat Clear Calc 74.3 Estimated GFR > 60 Random Glucose 249 H Estimat Average Glucose Hemoglobin A1c % Calcium 8.7 D Troponin I High Sens Triglycerides 169 Cholesterol 235 LDL Cholesterol, Calc 143 HDL Cholesterol 59 COVID-19 (CYNDIE) COVID-19 [id number] 02/10/21 02/10/21 08:12 09:21 WBC RBC Hgb Hct MCV MCH MCHC RDW Plt Count MPV Immature Gran % (Auto) Neut % (Auto) Lymph % (Auto) [place] % (Auto) Eos % (Auto) Baso % (Auto) Lymph # (Auto) [place] # (Auto) Eos # (Auto) Baso # (Auto) Abs Immat Gran (auto) Absolute Neuts (auto) Absolute Nucleated RBC Nucleated RBC % (auto) Smear Tech's Comments Smear Path Review PT INR PTT (Heparin Protocol) 56.7 D Sodium Potassium Chloride Carbon Dioxide Anion Gap BUN Creatinine Estim Creat Clear Calc Estimated GFR Random Glucose Estimat Average Glucose Hemoglobin A1c % Calcium Troponin I High Sens 1044.6 H Triglycerides Cholesterol LDL Cholesterol, Calc HDL Cholesterol COVID-19 (CYNDIE) COVID-19 Clin Com Discharge Plan Discharge Patient Disposition: Xfer Acute Care Hospital Referrals: [facility] [Outside] Discharge Medications: New atorvastatin 40 mg Tablet 80 mg PO BEDTIME Qty: 30 RF: 0 acetaminophen 325 mg Tablet 650 mg PO Q6H PRN (Reason: Pain, Mild (Pain Scale 1-3)) Qty: 3 RF: 0 aspirin 81 mg Tablet,Delayed Release (Dr/Ec) 81 mg PO DAILY Qty: 30 RF: 0 heparin(porcine) in 0.45% NaCl 25,000 unit/250 mL Parenteral Solution 25,000 unit continuous IV infusion .Q0M Qty: 1 RF: 0 metoprolol tartrate [Lopressor] 50 mg tablet 25 mg PO BID Qty: 30 RF: 0 insulin lispro [Humalog U-100 Insulin] 100 unit/mL Solution See Protocol unit subcut QIDACHS Qty: 1 RF: 0 Continued gabapentin 600 mg Tablet 600 mg PO BEDTIME RF: 0 omeprazole 40 mg Capsule,Delayed Release(Dr/Ec) 40 mg PO DAILY RF: 0 nortriptyline 25 mg Capsule 25 mg PO BEDTIME RF: 0 Discharge Orders: Discharge Order (Routine); Ordered 02/10/21 Ordered By: Basilio Bui Diet: diabetic diet and low fat, low cholesterol Activity on Discharge: bedrest Stand Alone Forms: Patient Portal Discharge page Care Plan Goals: Close outpatient follow-up with Cardiology and primary care physician Health Concerns: Non ST-elevation [place]/newly diagnosed diabetes/fall with left eye hematoma Plan of Treatment: Transferred to [facility] for cardiac catheterization continue IV heparin, aspirin, beta-bina and lipitor
--- NOTE | 2021-02-10 11:54 | MHC.CM.PN ---
Patient will be transferred to [facility] for higher level of care. Continue to monitor for d/c needs.
--- NOTE | 2021-02-10 12:28 | PC.NURSE ---
@12:25PM CALL OUT TO [facility] [place] LINE TO CHECK ON BED ASSIGNMENT FOR THIS PT GIVEN ROOM ASSIGNMENT OF [employer], BED [address] SILVER ARTEAGA OF [facility] HERE @ THIS TIME AND IS BOOKING TRANSFER NOW
[2021-02-10] MEDS: Metoprolol Tartrate 12.5 MG HALFTAB PO (12:48)
== END 2021-02-10 13:59 | disposition short-term general hospital (02) | DRG 190 ==
LOC: HO.ED 21:35 → HO.EDOVER 22:10
PROVIDERS: Physician Assistant Medical; Admitting Provider Internal Medicine; Emergency Provider Emergency Medicine; PCP Emergency Medicine; Visit Provider Hospitalist
DX: I21.4 Non-ST elevation (NSTEMI) myocardial infarction (principal); E11.9 Type 2 diabetes mellitus without complications; S01.112A Laceration without foreign body of left eyelid and periocular area, initial encounter; W01.0XXA Fall on same level from slipping, tripping and stumbling without subsequent striking against object, initial encounter; Y93.9 Activity, unspecified; R51.9 Headache, unspecified; F41.9 Anxiety disorder, unspecified; K21.9 Gastro-esophageal reflux disease without esophagitis; Y92.9 Unspecified place or not applicable; Y99.9 Unspecified external cause status; Z88.0 Allergy status to penicillin; Z20.822 Contact with and (suspected) exposure to COVID-19; Z88.5 Allergy status to narcotic agent; Z79.4 Long term (current) use of insulin; Z79.82 Long term (current) use of aspirin; Z79.899 Other long term (current) drug therapy
CPT/HCPCS: 36415; 70450; 71101; 80048; 80061; 83036; 84484; 85025; 85060; 85610; 85730; 87635; 93005; 93306; 96372; 96374; 96375; 99285; Q9957

== ENCOUNTER → 2021-02-26 11:28 | Outpatient (BNVA) | payer BC, SELFPAY | PROVIDERS: Visit Provider Internal Medicine Cardiovascular Disease ==